=== PATIENT | female | born 1965 | race Caucasian/White ===

== ENCOUNTER → 2016-11-27 | Outpatient (CLI) | payer OTHER ==
[~2016-11-27] VITALS: Ht 157.5 cm; Wt 91.6 kg
[~2016-11-27] MED LIST: AMLO10TA4 PO; ASPI-630 PO; CITA40TA12 PO; LIDOCAINE 2%/EPI 1:100,000 20 ML VIAL. IJ ONE; OLME1TAB25 PO; PITA1TAB2 PO; TRIA1CAP3 PO
[2016-11-27 08:54] VITALS: BP 98/60
--- NOTE | 2016-11-28 15:05 | PATHOLOGY ---
PATHOLOGY REPORT * * * * * * * * FINAL DIAGNOSIS: Breast tissue, left breast nodule core biopsy: - Fibroadenoma. COMMENT: There is no evidence of malignancy. (JPM:mmmax; d/t: 11/28/2016) REPORT ELECTRONICALLY SIGNED BY: Shailesh Cobos M.D. DATE/TIME: 11/28/2016 15:04 * * * * * * * * GROSS PATHOLOGY: Received in formalin labeled "Mynor Parry, left breast," are multiple needle cores of yellow-klein fibrofatty tissue measuring 1.7 x 1.5 x 0.4 cm in aggregate dimensions. The tissue is submitted in its entirety in cassette A1. The cold ischemic time is 3 minutes. The total formalin fixation time is 10 hours and 47 minutes. (JPM; 11/27/16) INITIAL CPT CODE(S): A; 07838 Professional services performed [place] [facility] [place] [address] Technical services performed by [facility] at [address] [place] [address]. [place] [address] phone: fax: SPECIMEN(S) RECEIVED: A.Left breast nodule CLINICAL HISTORY: Left breast nodule PATIENT: MYNOR PARRY /AGE: 1003/18/1965 (Age: 51) PATIENT #: [id number] ALT CASE #: SPECIMEN COLLECTION DATE: 11/27/2016 SPECIMEN RECEIVED DATE: 11/27/2016 [facility] - [address] [place] [address] - PHONE: [phone] * * * END OF REPORT * * *
--- NOTE | 2016-11-29 09:20 | RAD ---
Ultrasound-guided vacuum-assisted left breast biopsy, 11/27/2016: History: Suspicious breast nodule Previous studies demonstrated a suspicious nodule near the 12:00 location in the left breast. Under local anesthesia, aseptic conditions and sonographic guidance the Manifest biopsy instrument was passed into this nodule via a lateral approach. Multiple 12-gauge vacuum-assisted core samples were obtained. A biopsy marker was then deposited at the biopsy site. The biopsy instrument was then removed and hemostasis obtained. Two-view postprocedural digital mammograms were then obtained to document position of the biopsy marker. It lies along the anterosuperior margin of the biopsied nodule. The patient tolerated the procedure well and left the department in good condition. The subsequent pathology report indicated the presence of a fibroadenoma. This is a concordant finding.
== END | disposition home or self-care (01) ==
LOC: US 08:54
PROVIDERS: ATTEND Surgery
DX: N63 Unspecified lump in breast (principal)
CPT/HCPCS: 19081; 76942; C1713; G0206; 88305; 77065